=== PATIENT | male | born 1950 | race Native Hawaiian/Other Pacific Islander ===

== ENCOUNTER 2018-03-08 19:48 | Emergency (ER) | payer OTHER ==
[~2018-03-08] VITALS: Ht 170.2 cm; Wt 68.0 kg
[2018-03-08 19:45] VITALS: BP 116/81; TEMP 97.8
[2018-03-08] MEDS ORDERED: KP FOLIC ACID1 MG PO (19:51)
[2018-03-08] MEDS ORDERED: KEPPRA1000 MG PO (19:52)
[2018-03-08] MEDS ORDERED: MICRO-K10 MEQ PO (19:53)
[2018-03-08] MEDS ORDERED: ISOS10TA14 PO (19:54)
[2018-03-08] MEDS ORDERED: LEXAPRO10 MG PO (19:55)
[2018-03-08] MEDS ORDERED: ULTRACET1 TAB PO (19:55)
[2018-03-08] MEDS ORDERED: MULT VITAMI1 PO (19:56)
[2018-03-08] MEDS ORDERED: GABA300C2 PO (19:57)
[2018-03-08] MEDS ORDERED: DOCU SOFT100 MG PO (19:57)
[2018-03-08] MEDS ORDERED: METAMUCIL0.52 GM PO (19:58)
[2018-03-08] MEDS ORDERED: NAMZARIC 28-101 CAP PO (19:59)
[2018-03-08] MEDS ORDERED: VALPROIC A250 MG/5 M PO (20:00)
[2018-03-08] MEDS ORDERED: RISP0.25 PO (20:01)
[2018-03-08 20:22] LABS: PLATELET COUNT 342 K/uL (142-355)
[2018-03-08 20:29] LABS: POTASSIUM 3.8 mmol/L (3.6-5.2)
[2018-03-09] MEDS ORDERED: ISOSORB MONO10 MG PO (00:20)
[2018-03-09] MEDS ORDERED: B-12 COMPL1000 MCG/M INJ (00:26)
== END 2018-03-08 21:14 | disposition other institution (70) ==
LOC: ED 19:48
DX: R46.89 Other symptoms and signs involving appearance and behavior (principal); Z86.73 Personal history of transient ischemic attack (TIA), and cerebral infarction without residual deficits; Z04.6 Encounter for general psychiatric examination, requested by authority
CPT/HCPCS: 36415; 80053; 81000; 85027; 93005; 99285